=== PATIENT | female | born 1950 | race Caucasian/White ===

== ENCOUNTER 2017-06-26 08:47 | Outpatient (CLI) | payer OTHER | END 2017-06-26 16:39 | disposition home or self-care (01) | LOC: RAD 08:47 | DX: I10 Essential (primary) hypertension (principal) ==

== ENCOUNTER 2017-06-26 08:52 | Outpatient (CLI) | payer OTHER | END 2017-06-26 16:36 | disposition home or self-care (01) | LOC: MAMO-SONO 08:52 | DX: N60.11 Diffuse cystic mastopathy of right breast (principal); N60.12 Diffuse cystic mastopathy of left breast; Z12.31 Encounter for screening mammogram for malignant neoplasm of breast ==

== ENCOUNTER 2017-06-26 09:01 | Outpatient (CLI) | payer OTHER | END 2017-06-26 16:33 | disposition home or self-care (01) | LOC: MRI 09:01 | DX: M54.5 Low back pain (principal) | CPT/HCPCS: 72148 ==

== ENCOUNTER → 2017-06-26 | Outpatient (CLI) | payer OTHER | END | disposition home or self-care (01) | LOC: NUCLEAR 10:30 | DX: M81.0 Age-related osteoporosis without current pathological fracture (principal) ==

== ENCOUNTER → 2017-08-05 | Outpatient (CLI) | payer OTHER | END | disposition home or self-care (01) | LOC: PPH VACUNA 09:48 | DX: Z23 Encounter for immunization (principal) ==

== ENCOUNTER 2018-08-25 09:05 | Outpatient (CLI) | payer OTHER | END 2018-08-25 09:16 | disposition home or self-care (01) | LOC: EKG 09:05 | DX: Z01.818 Encounter for other preprocedural examination (principal); M99.33 Osseous stenosis of neural canal of lumbar region; M99.43 Connective tissue stenosis of neural canal of lumbar region ==

== ENCOUNTER 2018-10-03 06:45 | Day surgery (SDC) | payer OTHER ==
[~2018-10-03 06:45] MED LIST: DIAZIDE PO; DOLOGESIC 500-1 EACH PO; FOLGARD TABLET1 EACH PO; GABAPENTIN300 MG PO; OMEGA 3 1,0001 EACH PO; TRAZODONE HCL100 MG PO; [UNRECOGNIZED DRUG - OTHER] PO
== END 2018-10-03 17:45 | disposition home or self-care (01) ==
LOC: CIR.AMB 06:45
DX: M99.33 Osseous stenosis of neural canal of lumbar region (principal); M99.43 Connective tissue stenosis of neural canal of lumbar region; M48.07 Spinal stenosis, lumbosacral region

== ENCOUNTER 2018-12-31 07:49 | Outpatient (CLI) | payer OTHER | END 2018-12-31 07:54 | disposition home or self-care (01) | LOC: LAB 07:49 | DX: G90.09 Other idiopathic peripheral autonomic neuropathy (principal) ==

== ENCOUNTER → 2020-02-02 08:00 | Outpatient (CLI) | payer OTHER | END | disposition home or self-care (01) | LOC: PPH VACUNA 08:00 | DX: Z23 Encounter for immunization (principal) ==

== ENCOUNTER → 2020-02-19 | Outpatient (CLI) | payer OTHER | END | disposition home or self-care (01) | LOC: MRI 06:44 | DX: M54.5 Low back pain (principal) | CPT/HCPCS: 72148 ==

== ENCOUNTER → 2020-03-11 | Outpatient (CLI) | payer OTHER | END | disposition home or self-care (01) | LOC: RAD 07:36 | PROVIDERS: ATTEND Anesthesiology Pain Medicine | DX: J84.10 Pulmonary fibrosis, unspecified (principal); I10 Essential (primary) hypertension; M99.33 Osseous stenosis of neural canal of lumbar region; M99.43 Connective tissue stenosis of neural canal of lumbar region; M48.061 Spinal stenosis, lumbar region without neurogenic claudication ==

== ENCOUNTER 2020-05-30 08:26 | Outpatient (CLI) | payer OTHER | END 2020-05-30 08:35 | disposition home or self-care (01) | LOC: LAB 08:26 | DX: Z03.818 Encounter for observation for suspected exposure to other biological agents ruled out (principal) ==

== ENCOUNTER → 2020-10-11 | Outpatient (CLI) | payer OTHER | END | disposition home or self-care (01) | LOC: MRI 09:54 | DX: S83.241A Other tear of medial meniscus, current injury, right knee, initial encounter (principal); M19.90 Unspecified osteoarthritis, unspecified site | CPT/HCPCS: 73721 ==

== ENCOUNTER → 2021-01-16 08:13 | Outpatient (CLI) | payer OTHER | END | disposition home or self-care (01) | LOC: RAD 08:13 | PROVIDERS: ATTEND Orthopaedic Surgery | DX: M25.562 Pain in left knee (principal); M25.561 Pain in right knee ==

== ENCOUNTER 2021-08-08 06:17 | Outpatient (CLI) | payer OTHER | END 2021-08-08 07:00 | disposition home or self-care (01) | LOC: MRI 06:17 | PROVIDERS: ATTEND Orthopaedic Surgery | DX: M54.50 Low back pain, unspecified (principal); S83.200A Bucket-handle tear of unspecified meniscus, current injury, right knee, initial encounter | CPT/HCPCS: 73721 ==

== ENCOUNTER 2021-08-10 06:30 | Outpatient (CLI) | payer OTHER | END 2021-08-10 07:00 | disposition home or self-care (01) | LOC: MRI 06:30 | PROVIDERS: ATTEND Internal Medicine | DX: M54.59 Other low back pain (principal) | CPT/HCPCS: 72148 ==

== ENCOUNTER 2021-08-24 08:00 | Outpatient (CLI) | payer OTHER | END 2021-08-24 08:30 | disposition home or self-care (01) | LOC: PPH VACUNA 08:00 | PROVIDERS: ATTEND Emergency Medicine Pediatric Emergency Medicine | DX: Z23 Encounter for immunization (principal) ==